=== PATIENT | female | born 2000 | race Caucasian/White ===

== ENCOUNTER 2021-05-10 22:51 | Emergency (ER) | payer BC ==
[2021-05-11] MEDS ORDERED: LODINE CAP 300300 MG PO (00:55)
[2021-05-11] MEDS ORDERED: ZOFRAN ODT 4 MG4 MG PO (00:55)
[2021-05-11] MEDS ORDERED: CEPHALEXIN500 MG PO (00:55)
[2021-05-11] MEDS ORDERED: HYDROCODON-ACE1 EAC4 PO (02:02)
== END 2021-05-11 02:15 | disposition home or self-care (01) ==
LOC: ER1 22:51
DX: S62.624B Displaced fracture of middle phalanx of right ring finger, initial encounter for open fracture (principal); W21.07XA Struck by softball, initial encounter
CPT/HCPCS: 12042; 73130; 96372; 99283; J0690